=== PATIENT | male | born 1955 | race Caucasian/White ===

== ENCOUNTER 2022-05-16 14:19 | Emergency (ER) | payer MEDICARE, SELFPAY ==
--- NOTE | ~2022-05-16 | XR_ITS ---
EXAMINATION: XR chest 2V Exam Date/Time: 05/16/2022 14:58 CDT HISTORY: cough x several days Comparison: None available. RESULT: Lines, tubes, and devices: Right chest AICD, with intact lead. Lungs and pleura: Hazy segmental opacification in the right posterior lung base, with loss of the pos terior aspect of the right hemidiaphragm shadow. Linear streaky opacities in the right lung base, lik mehrdad representing underlying atelectasis/scar. Left lower lung calcified granuloma. Cardiomediastinal silhouette: Mild central pulmonary arterial dilation, otherwise unremarkable. Other: No acute osseous or upper abdominal finding. IMPRESSION: Right basilar consolidation, may reflect pneumonia in the appropriate clinical context. Reviewed, dictated and finalized at location K.
--- NOTE | 2022-05-16 14:22 | ED.SOB ---
HPI - SOB/Dyspnea General Chief Complaint: Upper Respiratory Infection Stated Complaint: shortness of breath, lung pain Time Seen by Provider: 05/16/22 14:50 Source: patient and RN notes reviewed Mode of arrival: ambulatory Limitations: no limitations History of Present Illness HPI Narrative: 66-year-old male presents concern for right sided pain and posterior when he coughs, takes deep breath, lays on it. He reports 2 days of symptoms. He reports he has had cold symptoms including cough for about 2 days. Reports he had several negative COVID test at home. He reports feeling like he cannot get a full breath sometimes. He denies chest pain, chest pain with exertion, diaphoresis, pain in the left arm. He denies known sick contacts. He denies any interventions at home. MD elicited complaint: pain with inspiration Related Data Home Medications Medication Instructions Recorded Confirmed carvedilol 12.5 mg tablet mg 05/16/22 dulaglutide 1.5 mg/0.5 mL mg subcut 05/16/22 subcutaneous pen injector (Trulicity) ferrous sulfate 325 mg (65 mg mg 05/16/22 iron) tablet furosemide 20 mg tablet mg 05/16/22 glipizide 10 mg tablet, extended mg PO 05/16/22 release 24 hr insulin glargine 100 unit/mL (3 unit subcut 05/16/22 mL) subcutaneous pen (Lantus Solostar U-100 Insulin) insulin lispro 100 unit/mL subcut 05/16/22 subcutaneous pen (Humalog KwikPen (U-100) Insulin) metformin 500 mg tablet,extended mg PO 05/16/22 release 24 hr omeprazole 40 mg capsule,delayed mg 05/16/22 release rosuvastatin 40 mg tablet mg 05/16/22 sacubitril 97 mg-valsartan 103 mg tablet 05/16/22 tablet (Entresto) spironolactone 25 mg tablet mg 05/16/22 Allergies Allergy/AdvReac Type Severity Reaction Status Date / Time nitroglycerin AdvReac Dizziness Verified 05/16/22 14:29 Review of Systems Review of Systems: CONSTITUTIONAL: Reports malaise. Reports low-grade fever. EYES: Denies visual changes, redness, or discharge. ENT: Reports rhinorrhea, congestion, sinus pain, otalgia and sore throat. CARDIOVASCULAR: Denies chest pain, palpitations, or edema. RESPIRATORY: Reports cough, lateral and posterior lower lung pain when coughing and deep breathing. Denies dyspnea. GASTROINTESTINAL: Denies abdominal pain, nausea, vomiting, diarrhea SKIN: Denies rash or itching. MUSCULOSKELETAL: Denies myalgia. NEUROLOGIC: Denies headache. All systems reviewed & are unremarkable except as noted in HPI and below PMFSH Comments At time of signature, agree with nursing past medical, surgical, social and family history. There is no relevant family history pertinent to the presenting complaint Exam Narrative: GENERAL: Well-appearing, well-nourished, and in no acute distress. HEAD: Normocephalic EYES: PERRLA, conjunctivae clear ENT: Nares clear. Mucous membranes moist. TM pearly mancuso with dull light reflex bilaterally; no tragal tenderness. Oropharynx not erythematous without lesions. Tonsils not enlarged and without exudate, no drooling, no hoarseness, no trismus, uvula midline. NECK: Supple. No lymphadenopathy CHEST: Right lower lung rhonchi, otherwise clear to auscultation, breath sounds equal. No wheezing, rales, or stridor. No respiratory distress, speaks in full sentences. HEART: Regular rate and rhythm. No murmur heard. SKIN: Warm, dry, no rash. NEURO: Alert and oriented x3. PSYCH: Normal mood and affect Course Course Emergency Course: Patient is aware of diagnosis, understands and agrees to treatment plan. Anticipatory guidance given. Patient agrees to follow-up as directed and is aware of reasons to seek care at the emergency department. Portions of this record may have been created with voice recognition software Level of Care: Express Care Visit Vital Signs Vital signs: Vital Signs Temperature 100.8 F H 05/16/22 14:30 Pulse Rate 81 05/16/22 14:30 Respiratory Rate 16 05/16/22 14:30 Blood Pressure 118/74 1
[2022-05-16 14:30] VITALS: BP 118/74; PULSE 81; RESP 16; TEMP 38.2; O2SAT 99
== END 2022-05-16 15:40 | disposition home or self-care (01) ==
PROVIDERS: Emergency Provider Nurse Practitioner; PCP Family Medicine
DX: J18.9 Pneumonia, unspecified organism (principal); Z95.810 Presence of automatic (implantable) cardiac defibrillator; Z95.5 Presence of coronary angioplasty implant and graft
CPT/HCPCS: 71046; 99213; G0463